=== PATIENT | male | born 1940 | race Caucasian/White ===

== ENCOUNTER 2016-09-25 15:33 | Emergency (ER) | payer MEDICARE, OTHER ==
[2016-09-25] MEDS ORDERED: Albuterol/Ipratropium 3.0-0.5 MG/3 ML Neb Soln ONE (15:39)
[2016-09-25] MEDS ORDERED: Aspirin 81 MG Tab.Chew PO ONE (15:44)
[2016-09-25] MEDS ORDERED: methylPREDNISolone Sodium Succinate 125 MG/2 ML SDV IVPUSH ONE (15:44)
[2016-09-25] MEDS ORDERED: Albuterol 0.083% 2.5 MG/3 ML Neb Soln NEB ONE (15:50)
[2016-09-25] MEDS ORDERED: Nitroglycerin 0.4 MG Tab.SL ONE (16:20)
[2016-09-25 16:23] LABS: O2 DELIVERY DEVICE NON REBR MASK; O2 FLOW RATE 0 L/min
[2016-09-25 16:24] LABS: PCO2 ARTERIAL > 130 mmHG (35-45); PO2 ARTERIAL 307 mmHG (80-105)
[2016-09-25] MEDS ORDERED: cefTRIAXone 1 GM Vial ONE (16:34)
[2016-09-25] MEDS ORDERED: Levofloxacin/Dextrose 5%-Water 50 ML IV ONE (16:37)
[2016-09-25] MEDS ORDERED: Levofloxacin/Dextrose 5%-Water 100 ML IV ONE (16:37)
[2016-09-25] MEDS ORDERED: Sodium Chloride 0.9% 1,000 ML ONE (16:50)
[2016-09-25 16:51] LABS: CHLORIDE,CL 101 mmol/L (98-115); SODIUM,NA 142 mmol/L (136-145)
[2016-09-25] MEDS: Albuterol 0.083% 2.5 MG/3 ML Neb Soln NEB SCH ×2 (17:40→17:41)
[2016-09-25 18:21] LABS: O2 DELIVERY DEVICE BIPAP; O2 FLOW RATE 0 L/min
[2016-09-25 18:22] LABS: PCO2 ARTERIAL > 130 mmHG (35-45); PO2 ARTERIAL 124 mmHG (80-105)
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
[2016-09-25 19:36] VITALS: BP 240/150
[2016-09-28] MEDS ORDERED: cefTRIAXone 1 GM Vial IV ONE (08:38)
== END 2016-09-25 18:40 | disposition critical access hospital (66) ==
LOC: KA.ED 15:33
DX: J44.1 Chronic obstructive pulmonary disease with (acute) exacerbation (principal); Z87.891 Personal history of nicotine dependence; E87.4 Mixed disorder of acid-base balance; R09.02 Hypoxemia; E11.9 Type 2 diabetes mellitus without complications; Z79.84 Long term (current) use of oral hypoglycemic drugs; C61 Malignant neoplasm of prostate; I50.9 Heart failure, unspecified; Z87.01 Personal history of pneumonia (recurrent); F41.9 Anxiety disorder, unspecified; E66.9 Obesity, unspecified; Z68.30 Body mass index [BMI] 30.0-30.9, adult; Z79.82 Long term (current) use of aspirin; Z79.899 Other long term (current) drug therapy; Z88.0 Allergy status to penicillin; Z91.02 Food additives allergy status
CPT/HCPCS: 36415; 36600; 71250; 80053; 81001; 82550; 82553; 82803; 82962; 83605; 83880; 84484; 85025; 87040; 94640; 96365; 96366; 96375; 99285; A9270; J1956; J2930; J7030; J7620; 93005